=== PATIENT | female | born 1970 | race Caucasian/White ===

== ENCOUNTER 2020-05-18 17:31 | Emergency (ER) | payer MEDICAID ==
[~2020-05-18] VITALS: Ht 154.9 cm; Wt 50.0 kg
[2020-05-18] MEDS ORDERED: IBUPROFEN 600MG TABLET PO ONE (18:15)
[2020-05-18] MEDS ORDERED: IBUP-2028 MT (18:19)
[2020-05-18] MEDS ORDERED: CEPH-569 MT (18:19)
[2020-05-18 18:20] VITALS: BP 136/79
[2020-05-18 18:22] LABS: CLARITY URINE CLEAR (CLEAR); COLOR URINE DARK YELLOW (YELLOW); KETONES URINE NEGATIVE (NEGATIVE); LEUKOCYTE ESTERASE URINE 3+ (NEGATIVE); NITRITE URINE POSITIVE (NEGATIVE); OCCULT BLOOD URINE 2+ (NEGATIVE); PH URINE 6.5 (4.5-8.0); PROTEIN URINE 1+ (NEGATIVE); SPECIFIC GRAVITY URINE 1.008 (1.005-1.030)
== END 2020-05-18 18:29 | disposition home or self-care (01) ==
LOC: ER 17:31
DX: N39.0 Urinary tract infection, site not specified (principal); B96.20 Unspecified Escherichia coli [E. coli] as the cause of diseases classified elsewhere
CPT/HCPCS: 81003; 87077; 87186; 99283

== ENCOUNTER 2020-10-21 12:53 | Emergency (ER) | payer MEDICAID ==
[~2020-10-21] VITALS: Ht 152.4 cm; Wt 52.0 kg
[~2020-10-21 12:53] MED LIST: CEPH-569 MT; IBUP-2028 MT
[2020-10-21] MEDS ORDERED: IBUPROFEN 600MG TABLET PO ONE (14:00)
[2020-10-21] MEDS ORDERED: IBUP-2029 MT (17:08)
[2020-10-21 17:21] VITALS: BP 130/90
== END 2020-10-21 18:02 | disposition home or self-care (01) ==
LOC: ER 12:53
DX: M25.572 Pain in left ankle and joints of left foot (principal); Z90.49 Acquired absence of other specified parts of digestive tract
CPT/HCPCS: 29515; 73610; 81025; 99283; Z7610